=== PATIENT | male | born 1950 | race Caucasian/White ===

== ENCOUNTER 2023-03-10 15:57 | Outpatient (CLI) | payer MEDICARE, SELFPAY | END 2023-03-10 15:58 | disposition home or self-care (01) | LOC: NFLDREF 03-13 13:28 | PROVIDERS: Visit Provider Family Medicine | DX: M77.8 Other enthesopathies, not elsewhere classified (principal); M79.602 Pain in left arm | CPT/HCPCS: 86140 ==